=== PATIENT | male | born 2000 | race Hispanic/Latino ===

== ENCOUNTER 2018-02-02 22:22 | Emergency (ER) | payer SELFPAY ==
[2018-02-02] MEDS ORDERED: Lorazepam 2 MG/ML VIAL ONE (23:47)
--- NOTE | 2018-02-03 00:06 | RAD ---
FRONTAL RADIOGRAPH CHEST: 02/02/18 COMPARISON: 05/05/07. HISTORY: Anxiety, dyspnea. FINDINGS: No pneumothorax, pleural fluid, focal consolidation or alveolar edema. Heart and mediastinal contours are unremarkable. IMPRESSION: No acute findings. POS: [facility]
== END 2018-02-03 00:30 | disposition home or self-care (01) ==
LOC: ERS 22:22
DX: F41.9 Anxiety disorder, unspecified (principal); R07.9 Chest pain, unspecified
CPT/HCPCS: 71045; 93005; J2060

== ENCOUNTER 2018-07-19 18:03 | Emergency (ER) | payer SELFPAY ==
[2018-07-19] MEDS ORDERED: Acetaminophen 500 MG TAB ONE (19:30)
[2018-07-19] MEDS ORDERED: Adacel (T-DAP) 0.5 ML SYRINGE ONE (19:30)
[2018-07-19] MEDS ORDERED: Bacitracin Zinc 1 Packet ONE (19:49)
== END 2018-07-19 19:56 | disposition home or self-care (01) ==
LOC: ERS 18:03
DX: S51.812A Laceration without foreign body of left forearm, initial encounter (principal); W26.0XXA Contact with knife, initial encounter
CPT/HCPCS: 12002; 90471; 90715